=== PATIENT | female | born 1975 | race African-American/Black ===

== ENCOUNTER 2018-10-06 09:13 | Emergency (ER) | payer SELFPAY ==
[~2018-10-06] VITALS: Ht 154.9 cm; Wt 121.4 kg
[2018-10-06] MEDS ORDERED: KETOROLAC TROMETHAMINE 30 MG/ML VIAL IVP ONE ×2 (09:30→12:15)
[2018-10-06] MEDS ORDERED: ONDANSETRON HCL 4 MG/2 ML VIAL IVP ONE ×2 (09:30→12:15)
[2018-10-06] MEDS ORDERED: FAMOTIDINE 10 MG/ML 2 ML VIAL IVP ONE ×2 (09:30→17:45)
[2018-10-06] MEDS ORDERED: SODIUM CHLORIDE 0.9% 1,000 ML IV ONE (09:30)
[2018-10-06] MEDS ORDERED: IOVERSOL 350 MG/ML 100 ML VIAL ONE (09:36)
[2018-10-06] MEDS ORDERED: SODIUM CHLORIDE 0.9% 100 ML ONE (09:36)
[2018-10-06 11:03] LABS: BASOPHILS % (AUTO) 0.4 % (0.0-2.0); EOSINOPHILS % (AUTO) 0.2 % (1.0-6.0); HEMATOCRIT 42.5 % (36-46); HEMOGLOBIN 14.1 g/dL (12.0-16.0); LYMPHOCYTES # (AUTO) 1.2 K/uL (1.0-4.8); LYMPHOCYTES % (AUTO) 9.8 % (22.0-44.0); MEAN CORPUSCULAR HEMOGLOBIN 30.9 pg (26.0-34.0); MEAN CORPUSCULAR HGB CONC 33.2 G/dL (31.0-37.0); MEAN CORPUSCULAR VOLUME 93 fL (80-100); MONOCYTES # (AUTO) 0.3 K/uL (0.1-1.0); MONOCYTES % (AUTO) 2.6 % (2.0-9.0); NEUTROPHILS # (AUTO) 10.4 K/uL (1.8-7.7); PLATELET COUNT (AUTO) 244 K/uL (150-450); RED BLOOD CELL COUNT(AUTO) 4.56 MIL/uL (4.00-5.20)
[2018-10-06 11:14] LABS: ANION GAP 10 mmol/L (8-16); CALCIUM, TOTAL 9.9 mg/dL (8.8-10.5); CARBON DIOXIDE 25 mmol/L (22-29); CHLORIDE 102 mmol/L (98-107); CREATININE 0.79 mg/dL (0.60-1.30); GLOMERULAR FILTR. RATE CALC > 60 mL/min (>60); GLUCOSE,RANDOM 104 mg/dL (70-110); POTASSIUM 3.7 mmol/L (3.5-5.1); SODIUM SERUM 137 mmol/L (136-145); UREA NITROGEN, BLOOD 10 mg/dL (7-18)
[2018-10-06 11:21] LABS: ALANINE AMINOTRANSFERASE 11 U/L (12-78); ALBUMIN 3.9 g/dL (3.4-5.0); ALKALINE PHOSPHATASE 65 U/L (46-116); ASPARTATE AMINOTRANSFERASE 19 U/L (15-37); BILIRUBIN,TOTAL 0.4 mg/dL (0.1-1.0); CREATINE KINASE, TOTAL ONLY 47 U/L (26-192); TOTAL PROTEIN, SERUM 7.8 g/dL (6.4-8.2)
[2018-10-06 11:23] LABS: LACTIC ACID 1.6 mmol/L (0.4-2.0)
[2018-10-06 11:25] LABS: INFLUENZA TYPE A NEGATIVE FOR TYPE A (NEGATIVE); INFLUENZA TYPE B NEGATIVE FOR TYPE B (NEGATIVE)
[2018-10-06] MEDS ORDERED: IOVERSOL 350 MG/ML 150 ML VIAL ONE (11:47)
[2018-10-06 12:31] LABS: HCG,QUANTITATIVE 5 mIU/mL (0-6)
[2018-10-06 15:40] LABS: GLUCOSE, CSF 65 mg/dL (50-80); TOTAL PROTEIN, CSF 39 mg/dL (15-45)
[2018-10-06 16:56] LABS: CSF TUBE NUMBER 1
[2018-10-06 16:57] LABS: APPEARANCE,CSF CLEAR (CLEAR); COLOR,CSF COLORLESS (COLORLESS); LYMPHOCYTES1,CSF 50 %; MONOCYTES1,CSF 50 %; NEUTROPHILS1,CSF 0 %; OTHER CELLS,CSF 0
[2018-10-06 16:58] LABS: APPEARANCE2,CSF CLEAR (CLEAR); COLOR2,CSF COLORLESS (COLORLESS); CSF 2ND TUBE NUMBER 4; LYMPHOCYTES2,CSF 100 %; MONOCYTES2,CSF 0 %; NEUTROPHILS2,CSF 0 %; OTHER CELLS,CSF 2ND 0; RED BLOOD CELL2,CSF 0.5 CMM (0-0); WHITE BLOOD CELL2,CSF 0.5 CMM (0-5)
[2018-10-06] MEDS ORDERED: METOCLOPRAMIDE HCL 5 MG/ML 2 ML VIAL IVP ONE (17:45)
[2018-10-06] MEDS ORDERED: MORPHINE SULFATE 2 MG/ML SYRINGE IVP ONE (18:15)
[2018-10-06] MEDS ORDERED: DiphenhydrAMINE HCL 50 MG/ML VIAL IVP ONE (18:30)
[2018-10-06 21:50] VITALS: BP 145/89
[2018-10-09 22:05] LABS: MUMPS VIRUS IGM ANTIBODY CSF 0.12 IV (<=0.79); RUBEOLA (MEASLES) IGG CSF <5.0 AU/mL (<=29.9); WEST NILE VIRUS IGG CSF 0.19 IV (<=1.29); WEST NILE VIRUS IGM CSF 0.02 IV (<=0.89)
== END 2018-10-06 22:10 | disposition home or self-care (01) ==
LOC: EMS 09:15
DX: E04.1 Nontoxic single thyroid nodule (principal); N83.201 Unspecified ovarian cyst, right side; R11.2 Nausea with vomiting, unspecified; R51 Headache; Z91.040 Latex allergy status
CPT/HCPCS: 36415; 62270; 70450; 70491; 71046; 74177; 80053; 82550; 82945; 83605; 84157; 84702; 85025; 85610; 86694; 86735; 86765; 86787; 86788; 86789; 87040; 87070; 87205; 87804; 89051; 96361; 96374; 96375; 96376; 99285; J1200; J1885; J2270; J2405; J2765; J3490; J7030; J7050; Q9967 ×2

== ENCOUNTER 2019-07-06 08:21 | Day surgery (SDC) | payer OTHER ==
[2019-07-02 14:43] LABS: BASOPHILS % (AUTO) 1.2 % (0.0-2.0); EOSINOPHILS % (AUTO) 2.7 % (1.0-6.0); HEMATOCRIT 39.9 % (36-46); HEMOGLOBIN 13.5 g/dL (12.0-16.0); LYMPHOCYTES # (AUTO) 2.9 K/uL (1.0-4.8); LYMPHOCYTES % (AUTO) 37.7 % (22.0-44.0); MEAN CORPUSCULAR HEMOGLOBIN 30.6 pg (26.0-34.0); MEAN CORPUSCULAR HGB CONC 33.9 G/dL (31.0-37.0); MEAN CORPUSCULAR VOLUME 90 fL (80-100); MONOCYTES # (AUTO) 0.5 K/uL (0.1-1.0); MONOCYTES % (AUTO) 6.3 % (2.0-9.0); NEUTROPHILS % (AUTO) 52.1 % (40.0-70.0); PLATELET COUNT (AUTO) 263 K/uL (150-450); RED BLOOD CELL COUNT(AUTO) 4.41 MIL/uL (4.00-5.20); RED CELL DISTRIBUTION WIDTH 13.3 % (11.5-14.5)
[2019-07-02 14:58] LABS: PROTHROMBIN TIME 10.5 SEC (9.4-11.6)
[2019-07-02 15:06] LABS: ANION GAP 9 mmol/L (8-16); CALCIUM, TOTAL 9.7 mg/dL (8.8-10.5); CARBON DIOXIDE 28 mmol/L (22-29); CHLORIDE 107 mmol/L (98-107); CREATININE 0.92 mg/dL (0.60-1.30); GLOMERULAR FILTR. RATE CALC > 60 mL/min (>60); GLUCOSE,RANDOM 97 mg/dL (70-110); SODIUM SERUM 144 mmol/L (136-145); UREA NITROGEN, BLOOD 20 mg/dL (7-18)
[2019-07-03 10:47] LABS: HCG,QUANTITATIVE 6 mIU/mL (0-6)
[~2019-07-06] VITALS: Ht 160 cm; Wt 98.0 kg
[2019-07-06] MEDS: BUPIVACAINE LIPOSOME/PF 1.3%-13.3MG/ML SUSPENSION 10 ML VIAL INJ ONE ×2 (08:00→10:15)
[~2019-07-06 08:21] MED LIST: CeFAZolin 1 GM/DEXTROSE 50 ML IV ONE; LIDOCAINE/PF 1% 2 ML VIAL ID ONE; RINGERS SOLUTION,LACTATED 1,000 ML IV ONE
[2019-07-06] MEDS ORDERED: LIDOCAINE/PF 2% 5 ML VIAL IM ONE (08:22)
[2019-07-06] MEDS ORDERED: SUCCINYLCHOLINE CHLORIDE 20 MG/ML 10 ML VIAL IVP ONE (08:22)
[2019-07-06] MEDS ORDERED: KETOROLAC TROMETHAMINE 60 MG/2 ML VIAL IM ONE (08:22)
[2019-07-06] MEDS ORDERED: FentaNYL CITRATE-PF 100 MCG/2 ML VIAL IVP ONE (08:22)
[2019-07-06] MEDS ORDERED: PROPOFOL 1% 20 ML VIAL IVP ONE (08:22)
[2019-07-06] MEDS ORDERED: MIDAZOLAM HCL 2 MG/2 ML VIAL IVP ONE (08:22)
[2019-07-06] MEDS ORDERED: ROCURONIUM BROMIDE 10 MG/ML 5 ML VIAL IVP ONE (08:22)
[2019-07-06] MEDS ORDERED: ONDANSETRON HCL 4 MG/2 ML VIAL IVP ONE (08:22)
[2019-07-06] MEDS ORDERED: DEXAMETHASONE SOD PHOS 4 MG/ML VIAL IVP ONE (08:22)
[2019-07-06] MEDS ORDERED: ACETAMINOPHEN 1000 MG/ISO-OSM 100 ML IV ONE (08:56)
[2019-07-06] MEDS ORDERED: BUPIVACAINE/EPI/PF 0.5% 30 ML VIAL ONE (09:10)
[2019-07-06] MEDS ORDERED: SUGAMMADEX SODIUM 200 MG/2 ML VIAL IVP ONE (09:44)
[2019-07-06] MEDS ORDERED: MEPERIDINE-PF 25 MG/ML VIAL IVP PRN (09:45)
[2019-07-06] MEDS ORDERED: FentaNYL CITRATE-PF 100 MCG/2 ML VIAL IVP PRN (09:45)
[2019-07-06] MEDS ORDERED: RINGERS SOLUTION,LACTATED 1,000 ML IV ONE (10:13)
[2019-07-06] MEDS ORDERED: MEPERIDINE-PF 25 MG/ML VIAL ONE (10:42)
[2019-07-06] MEDS ORDERED: HYDROmorphone 2 MG/ML SYRINGE ONE (10:46)
[2019-07-06] MEDS: HYDROmorphone 2 MG/ML SYRINGE IVP PRN ×2 (10:47→10:56)
[2019-07-06] MEDS ORDERED: FentaNYL CITRATE-PF 100 MCG/2 ML VIAL ONE (10:57)
[2019-07-06] MEDS ORDERED: HYDROmorphone 2 MG/ML SYRINGE IVP ONE (11:05)
[2019-07-06] MEDS ORDERED: OXYGEN THERAPY IH SCH (20:00)
== END 2019-07-06 12:34 | disposition home or self-care (01) ==
LOC: SURGERY 08:21 → EDSTATUS 13:15
PROVIDERS: ATTEND Orthopaedic Surgery Orthopaedic Surgery of the Spine
DX: M51.26 Other intervertebral disc displacement, lumbar region (principal); J45.909 Unspecified asthma, uncomplicated; G89.29 Other chronic pain; E66.01 Morbid (severe) obesity due to excess calories; Z68.38 Body mass index [BMI] 38.0-38.9, adult; Z11.59 Encounter for screening for other viral diseases; Z79.01 Long term (current) use of anticoagulants; Z91.040 Latex allergy status; Z88.5 Allergy status to narcotic agent; Z98.890 Other specified postprocedural states; Z98.51 Tubal ligation status; R97.8 Other abnormal tumor markers
CPT/HCPCS: 36415; 63030; 80048; 84702; 85025; 85610; 85730; 87635; C1716; J0131; J0330; J0690; J1100; J1170; J1885; J2175; J2250; J2405; J2704; J3010; J3490 ×3; J7120